=== PATIENT | male | born 1990 | race Caucasian/White ===

== ENCOUNTER 2018-07-17 16:05 | Observation (INO) | payer MEDICAID, SELFPAY ==
[2018-07-17 16:07] VITALS: BP 153/94; PULSE 90; RESP 16; TEMP 37; O2SAT 100; BMI 22.4
--- NOTE | 2018-07-17 16:27 | ED.DCSUM_ITS ---
- ER Visit Summary Date of Service: 07/17/18 Chief Complaint: Fentanyl withdrawal History of Present Illness: The patient is a 28 M who presents in [facility]. He states that his last use of fentanyl was about 15 hours ago. He states he is using about a half a gram a day. He feels restless and clammy. He has had nausea without vomiting. He has not had a bowel movement today. He has been in contact [facility] and [facility] sent him here for workup. Does have a history of hepatitis C but is not on any current treatments. Physical Examination: Vital signs reviewed. HEENT exam unremarkable. Heart is regular rate and rhythm without murmurs. Lungs are clear to auscultation. Abdomen is soft and nontender. Extremities reveal no edema. Skin exam track beck are noted on the bilateral arms. Neurologic exam normal. Test Results: Sodium 135, glucose 112. Alcohol normal. Toxicology screen reveals opiates, amphetamines, cocaine and cannabis Emergency Department Course and Treatment: The patient scored a 21 on his narcotic withdrawal assessment. This indicates moderate withdrawal. [facility] has left for the day. I did discuss with the hospitalist for admission. Treatment Plan: [] Disposition: Admit Impression: Narcotic withdrawal This note was generated with [employer] dictation software. It may contain incorrect words, spelling, and punctuation that were not noted in review of the chart prior to signing ED Disposition - Plan for ED Patient: Chief Complaint: Substance Abuse
[2018-07-17 17:04] LABS: Absolute Lymphocyte Count 1.59 X10^3/ul (0.83-4.51); Absolute Neutrophil Count 6.3 X10^3/uL (2.0-7.7); Basophil# 0.04 X10^3/uL; Basophil% 0.5 % (0-1); Eosinophil# 0.13 X10^3/uL; Eosinophils% 1.5 % (0-5); Hematocrit 40.5 % (40-54); Lymphocyte # 1.59 X10^3/ul (4.0); Lymphocyte % 18.1 % (19-41); Mean Corp Hgb Conc 34.6 g/gl (32-36); Mean Corpuscular Hgb 31.7 pg (27.0-32.0); Mean Corpuscular Volume 91.6 fL (80-94); Mean Platelet Vol. 9.6 fl (6.2-12.0); Monocyte# 0.69 X10^3/uL; Monocyte% 7.9 % (0-10); Neutrophil # 6.31 X10^3/uL (2.7-7.7); Neutrophil % 71.9 % (47-70); Platelet Count 276 K/mm3 (150-450); Red Blood Count 4.42 M/mm3 (4.6-6.2); White Blood Count 8.8 K/mm3 (4.4-11.0)
[2018-07-17 17:07] LABS: POSITIVE COUNT NO; POSITIVE DIFFERENTIAL NO; POSITIVE MORPHOLOGY NO
[2018-07-17 17:12] LABS: Alcohol, Blood (Medical)-Serum < 3.0 mg/dL
[2018-07-17 17:15] LABS: Anion Gap 7 (5-15); BUN 9 mg/dL (7-18); BUN/Creat Ratio 11.1 RATIO (10-20); Calcium,Total 9.2 mg/dL (8.5-10.1); Chloride 101 mmol/L (98-107); Creatinine, Serum 0.81 mg/dL (0.70-1.30); EST Glomerular Filtration Rate 119 mL/min (>60); Est Glom Filt Rate - Afr Amer 144 mL/min (>60); Estimated Creatinine Clearance 123.63 ml/min; Glucose 112 mg/dL (74-106); Potassium 3.5 mmol/L (3.5-5.1); Sodium Level 135 mmol/L (136-145)
[2018-07-17 17:38] LABS: Amphetamine Urine VISTA POSITIVE (<1000 ng/mL); Barbiturate Urine VISTA NEGATIVE (< 200 ng/mL); Benzodiazepine Urine VISTA NEGATIVE (< 200 ng/mL); Cocaine Urine VISTA POSITIVE (< 300 ng/mL); Ecstacy Urine VISTA NEGATIVE (< 500 ng/mL); Methadone Urine VISTA NEGATIVE (< 300 ng/mL); PCP Urine VISTA NEGATIVE (< 25 ng/mL); THC Urine VISTA POSITIVE (< 50 ng/mL); Vista UDS pH Range 7
--- NOTE | 2018-07-17 18:01 | NURSING ---
MED SURG NARCOTIC WITHDRAWAL GUSTAVO
--- NOTE | 2018-07-17 18:07 | PCM.HP.STD ---
Problem List (1) Opiate withdrawal Status: Acute History of Present Illness Date of Admission: 07/17/18 Chief Complaint: fentanyl withdrawal The patient is a 28 year old M who injects fentanyl. Last use was approximately 15 hours prior to arrival. Since then, patient has been having tremulousness, abdominal cramps, nausea and anxiety. Patient presents for [facility] but sent to the emergency room for admission. Patient had lab work in the emergency room sample for urine drug screen positive for opiates, amphetamines, cocaine and cannabinoids. Patient has quit before only to relapse in the past. Patient intends on quitting all drugs moving forward. [] Past Medical History Medical History: Medical History (Last Updated 07/17/18 @ 18:10 by Nino Cox DO) Cleft palate Q35.9 Hepatitis C B19.20 Opiate abuse, continuous F11.10 Polysubstance abuse F19.10 Allergies Penicillins Allergy (Verified 07/17/18 16:09) Hives Home Medications: Ambulatory Orders Medication Instructions Recorded NK 07/17/18 Surgical History: - - cleft palate repair Lives: Alone Smoking Status: Heavy Smoker (>10/day) Tobacco Use: Cigarettes Alcohol: None Drugs: Cocaine, Heroin, Marijuana - *Family History Maternal History Items: - - no medical problems Paternal History Items: - - no medical problems Review of Systems Constitutional: Denies: Chills, Fever, Weight Change Eyes: Reports: Blurred vision. Denies: Double vision HEENT: Reports: Sinus Congestion, - - rhinitis. Denies: Head Aches, Sinus Drainage Cardiovascular: Denies: Chest Pain, Palpitations Respiratory: Denies: Cough, Shortness of breath at rest, Sputum production Gastrointestinal: Reports: Nausea. Denies: Abdominal Pain, Vomiting Genitourinary: Denies: Dysuria Musculoskeletal: Denies: Joint Pain, Joint Tenderness Skin: Reports: - - track beck in RUE Neurological: Denies: Numbness, Tingling, Focal weakness Hematologic/ Lymphatic: Denies: Easy Bruising, Easy Bleeding, Hx of blood clot Comment: All review of systems are negative except as mentioned in the history of present illness and the other review of systems. VTE Information - Inpt Only VTE Present on Admission: No VTE Mechan Device Prophylaxis: None VTE Pharm Prophylaxis ordered?: No Reason prophylaxis not ordered:: Procedure Not Indicated Patient Problems: Active and Suspected Problems Opiate withdrawal (Acute) - Physical Exam General: Alert, No apparent distress HEENT: Atraumatic, Normocephalic, - - Cauliflower ear on the right Neck: No Nodes, Thyroid Normal Size and Texture Lungs: Clear to auscultation, Normal air movement, No rhonchi, No wheeze Cardiovascular: Regular rate, Regular Rhythm, Normal S1, Normal S2, No murmurs Abdomen: Bowel Sounds Present, Soft, Non Tender, Non-Distended, No Hepato-splenomegaly Extremities: No edema, No Calf Tenderness Skin: - - Linear track beck in the right forearm there is no evidence of any cellulitis nor erythema nor fluctuance. Psych/Mental Status: Normal Affect, Appropriate Vital Signs Temp Pulse Resp BP Pulse Ox 37.0 C 90 16 153/94 H 100 07/17/18 16:07 07/17/18 16:07 07/17/18 16:07 07/17/18 16:07 07/17/18 16:07 Oxygen Delivery Method Room Air Weight: 64.954 kg Body Mass Index (BMI) 22.4 Laboratory Tests Past 24 Hrs 07/17/18 07/17/18 07/17/18 16:37 16:37 16:37 WBC 8.8 RBC 4.42 L Hgb 14.0 Hct 40.5 MCV 91.6 MCH 31.7 MCHC 34.6 RDW 13.0 RDW Differential 43.0 Plt Count 276 MPV 9.6 Immature Gran % (Auto) 0.100 Neut % (Auto) 71.9 H Lymph % (Auto) 18.1 L [place] % (Auto) 7.9 Eos % (Auto) 1.5 Baso % (Auto) 0.5 Absolute Neuts (auto) 6.3 Absolute Lymphs (auto) 1.59 Total Counted Not Reportable Sodium 135 L Potassium 3.5 Chloride 101 Carbon Dioxide 27.0 Anion Gap 7 BUN 9 Creatinine 0.81 Estim Creat Clear Calc 123.63 Est GFR (MDRD) Af Amer 144 Est GFR (MDRD) Non-Af 119 BUN/Creatinine Ratio 11.1 Glucose 112 H Calcium 9.2 Urine Opiates Screen Urine Methadone Screen Ur Barbiturates Screen Ur Phencyclidine Scrn Ur Amphetamines Screen U Methamphetamin-MDMA U Benzodiazepines Scrn Urine Cocaine Screen U Cannabinoids Screen Ur Drug Screen Comment Ethyl Alcohol < 3.0 07/17/18 17:15 WBC RBC Hgb Hct MCV MCH MCHC RDW RDW Differential Plt Count MPV Immature Gran % (Auto) Neut % (Auto) Lymph % (Auto) [place] % (Auto) Eos % (Auto) Baso % (Auto) Absolute Neuts (auto) Absolute Lymphs (auto) Total Counted Sodium Potassium Chloride Carbon Dioxide Anion Gap BUN Creatinine Estim Creat Clear Calc Est GFR (MDRD) Af Amer Est GFR (MDRD) Non-Af BUN/Creatinine Ratio Glucose Calcium Urine Opiates Screen POSITIVE H Urine Methadone Screen NEGATIVE Ur Barbiturates Screen NEGATIVE Ur Phencyclidine Scrn NEGATIVE Ur Amphetamines Screen POSITIVE H U Methamphetamin-MDMA NEGATIVE U Benzodiazepines Scrn NEGATIVE Urine Cocaine Screen POSITIVE H U Cannabinoids Screen POSITIVE H Ur Drug Screen Comment Ethyl Alcohol Assessment/Plan All Active Problems Opiate withdrawal (Acute) 1. Acute opiate/fentanyl withdrawal Patient will be started on Subutex taper for his acute opiate withdrawal. Additionally, patient will have other medications to help out with other somatic complaints. [facility] to assist in regards to outpatient support Patient advised that if he attempts to divert medication that he will be immediately removed from this program. 2. Polysubstance abuse Patient does willingly endorse that he does use cocaine and marijuana sparingly. Has no intention on continuing using these substances. 3. Tobacco abuse: Nicotine patch Code Visit Inpatient E&M: 13092 Init Hosp L2
--- NOTE | 2018-07-17 18:11 | HP.PCM_ITS ---
Problem List (1) Opiate withdrawal Status: Acute History of Present Illness Date of Admission: 07/17/18 Chief Complaint: fentanyl withdrawal The patient is a 28 year old M who injects fentanyl. Last use was approximately 15 hours prior to arrival. Since then, patient has been having tremulousness, abdominal cramps, nausea and anxiety. Patient presents for [facility] but sent to the emergency room for admission. Patient had lab work in the emergency room sample for urine drug screen positive for opiates, amphetamines, cocaine and cannabinoids. Patient has quit before only to relapse in the past. Patient intends on quitting all drugs moving forward. [] Past Medical History Medical History: Medical History (Last Updated 07/17/18 @ 18:10 by Nino oCx DO) Cleft palate Q35.9 Hepatitis C B19.20 Opiate abuse, continuous F11.10 Polysubstance abuse F19.10 Allergies Penicillins Allergy (Verified 07/17/18 16:09) Hives Home Medications: Ambulatory Orders Medication Instructions Recorded NK 07/17/18 Surgical History: - - cleft palate repair Lives: Alone Smoking Status: Heavy Smoker (>10/day) Tobacco Use: Cigarettes Alcohol: None Drugs: Cocaine, Heroin, Marijuana - *Family History Maternal History Items: - - no medical problems Paternal History Items: - - no medical problems Review of Systems Constitutional: Denies: Chills, Fever, Weight Change Eyes: Reports: Blurred vision. Denies: Double vision HEENT: Reports: Sinus Congestion, - - rhinitis. Denies: Head Aches, Sinus Drainage Cardiovascular: Denies: Chest Pain, Palpitations Respiratory: Denies: Cough, Shortness of breath at rest, Sputum production Gastrointestinal: Reports: Nausea. Denies: Abdominal Pain, Vomiting Genitourinary: Denies: Dysuria Musculoskeletal: Denies: Joint Pain, Joint Tenderness Skin: Reports: - - track beck in RUE Neurological: Denies: Numbness, Tingling, Focal weakness Hematologic/ Lymphatic: Denies: Easy Bruising, Easy Bleeding, Hx of blood clot Comment: All review of systems are negative except as mentioned in the history of present illness and the other review of systems. VTE Information - Inpt Only VTE Present on Admission: No VTE Mechan Device Prophylaxis: None VTE Pharm Prophylaxis ordered?: No Reason prophylaxis not ordered:: Procedure Not Indicated Patient Problems: Active and Suspected Problems Opiate withdrawal (Acute) - Physical Exam General: Alert, No apparent distress HEENT: Atraumatic, Normocephalic, - - Cauliflower ear on the right Neck: No Nodes, Thyroid Normal Size and Texture Lungs: Clear to auscultation, Normal air movement, No rhonchi, No wheeze Cardiovascular: Regular rate, Regular Rhythm, Normal S1, Normal S2, No murmurs Abdomen: Bowel Sounds Present, Soft, Non Tender, Non-Distended, No Hepato- splenomegaly Extremities: No edema, No Calf Tenderness Skin: - - Linear track beck in the right forearm there is no evidence of any cellulitis nor erythema nor fluctuance. Psych/Mental Status: Normal Affect, Appropriate Vital Signs Temp Pulse Resp BP Pulse Ox 37.0 C 90 16 153/94 H 100 07/17/18 16:07 07/17/18 16:07 07/17/18 16:07 07/17/18 16:07 07/17/18 16:07 Oxygen Delivery Method Room Air Weight: 64.954 kg Body Mass Index (BMI) 22.4 Laboratory Tests Past 24 Hrs 07/17/18 07/17/18 07/17/18 16:37 16:37 16:37 WBC 8.8 RBC 4.42 L Hgb 14.0 Hct 40.5 MCV 91.6 MCH 31.7 MCHC 34.6 RDW 13.0 RDW Differential 43.0 Plt Count 276 MPV 9.6 Immature Gran % (Auto) 0.100 Neut % (Auto) 71.9 H Lymph % (Auto) 18.1 L [place] % (Auto) 7.9 Eos % (Auto) 1.5 Baso % (Auto) 0.5 Absolute Neuts (auto) 6.3 Absolute Lymphs (auto) 1.59 Total Counted Not Reportable Sodium 135 L Potassium 3.5 Chloride 101 Carbon Dioxide 27.0 Anion Gap 7 BUN 9 Creatinine 0.81 Estim Creat Clear Calc 123.63 Est GFR (MDRD) Af Amer 144 Est GFR (MDRD) Non-Af 119 BUN/Creatinine Ratio 11.1 Glucose 112 H Calcium 9.2 Urine Opiates Screen Urine Methadone Screen Ur Barbiturates Screen Ur Phencyclidine Scrn Ur Amphetamines Screen U Methamphetamin-MDMA U Benzodiazepines Scrn Urine Cocaine Screen U Cannabinoids Screen Ur Drug Screen Comment Ethyl Alcohol < 3.0 07/17/18 17:15 WBC RBC Hgb Hct MCV MCH MCHC RDW RDW Differential Plt Count MPV Immature Gran % (Auto) Neut % (Auto) Lymph % (Auto) [place] % (Auto) Eos % (Auto) Baso % (Auto) Absolute Neuts (auto) Absolute Lymphs (auto) Total Counted Sodium Potassium Chloride Carbon Dioxide Anion Gap BUN Creatinine Estim Creat Clear Calc Est GFR (MDRD) Af Amer Est GFR (MDRD) Non-Af BUN/Creatinine Ratio Glucose Calcium Urine Opiates Screen POSITIVE H Urine Methadone Screen NEGATIVE Ur Barbiturates Screen NEGATIVE Ur Phencyclidine Scrn NEGATIVE Ur Amphetamines Screen POSITIVE H U Methamphetamin-MDMA NEGATIVE U Benzodiazepines Scrn NEGATIVE Urine Cocaine Screen POSITIVE H U Cannabinoids Screen POSITIVE H Ur Drug Screen Comment Ethyl Alcohol Assessment/Plan All Active Problems Opiate withdrawal (Acute) 1. Acute opiate/fentanyl withdrawal * Patient will be started on Subutex taper for his acute opiate withdrawal. * Additionally, patient will have other medications to help out with other somatic complaints. * [facility] to assist in regards to outpatient support * Patient advised that if he attempts to divert medication that he will be immediately removed from this program. 2. Polysubstance abuse * Patient does willingly endorse that he does use cocaine and marijuana sparingly. Has no intention on continuing using these substances. 3. Tobacco abuse: Nicotine patch Code Visit Inpatient E&M: 49284 Init Hosp L2
[2018-07-17 18:30] VITALS: BMI 18.8
[2018-07-17 18:31] VITALS: BP 135/80; PULSE 80; RESP 14; O2SAT 98
[2018-07-17 18:33] VITALS: BP 108/69; PULSE 82; RESP 18; TEMP 36.9; O2SAT 100
[2018-07-17 18:34] VITALS: BMI 18.9
[2018-07-17 19:31] VITALS: BP 121/68; PULSE 88; RESP 16; TEMP 36.8
[2018-07-17] MEDS: Ibuprofen 600 MG Tablet PO (19:43)
[2018-07-17] MEDS: Methocarbamol 750 MG Tablet PO (19:43)
[2018-07-17] MEDS: cloNIDine HCl 0.1 MG Tablet PO ×2 (19:43→23:51)
[2018-07-17] MEDS: Dicyclomine 10 MG Capsule 20 MG PO (19:43)
[2018-07-17] MEDS: Buprenorphine HCl 2 MG TAB.SUBL 4 MG SL (19:43)
[2018-07-17 20:09] LABS: HIV - WCH Non-Reactive (Nonreactive)
[2018-07-17 23:47] VITALS: BP 127/99; PULSE 75; RESP 16; TEMP 36.6
[2018-07-17] MEDS: Pramipexole Di-HCl 0.25 MG Tablet PO (23:51)
[2018-07-17] MEDS: hydrOXYzine PAM 25 MG Capsule 50 MG PO (23:51)
[2018-07-17] MEDS: traZODone 50 MG Tablet PO (23:51)
[2018-07-18 04:02] VITALS: BP 88/50; PULSE 64; RESP 16; TEMP 36.6
[2018-07-18] MEDS: Buprenorphine HCl 2 MG TAB.SUBL 4 MG SL ×2 (04:06→12:02)
[2018-07-18 08:29] VITALS: BP 147/119; PULSE 70; RESP 16; TEMP 36.4; O2SAT 99
[2018-07-18] MEDS: Methocarbamol 750 MG Tablet PO (10:08)
[2018-07-18] MEDS: cloNIDine HCl 0.1 MG Tablet PO (10:08)
--- NOTE | 2018-07-18 11:45 | PCM.PN.HOSP ---
Patient Problems: Active and Suspected Problems (Last Updated 07/17/18 @ 18:10 by Nino Cox DO) Opiate withdrawal (Acute) Subjective: Patient has a track eboni of IV use. History of fentanyl contaminated with other drugs. Currently feeling hot and cold sensation, anxiety and restlessness. Vitals/I&O's: Vital Signs Temp Pulse Resp BP Pulse Ox 97.5 F L 70 16 147/119 H 99 07/18/18 08:29 07/18/18 08:29 07/18/18 08:29 07/18/18 08:29 07/18/18 08:29 Oxygen Delivery Method Room Air Weight: 120 lb 5.958 oz Body Mass Index (BMI) 18.8 General: Alert, Oriented x3, Cooperative HEENT: Atraumatic, PERRLA, EOMI, Normocephalic Neck: Supple, No JVD, Negative Carotid Bruits Lungs: Clear to auscultation, Normal air movement, No rhonchi, No wheeze Cardiovascular: Regular rate, No murmurs Abdomen: Bowel Sounds Present, Soft, Non Tender, Non-Distended Extremities: No edema, Capillary Refill Less than 3 Seconds Skin: - - Skin needle track beck over forearms. No abscess. Musculoskeletal: No Tenderness to Palpation of Joints or Extremities Neurological: Cranial nerves II-XII grossly intact Psych/Mental Status: Normal Affect, Appropriate Laboratory Results 07/17/18 16:37: WBC 8.8, RBC 4.42 L, Hgb 14.0, Hct 40.5, MCV 91.6, MCH 31.7, MCHC 34.6, RDW 13.0, RDW Differential 43.0, Plt Count 276, MPV 9.6, Immature Gran % (Auto) 0.100, Neut % (Auto) 71.9 H, Lymph % (Auto) 18.1 L, [place] % (Auto) 7.9, Eos % (Auto) 1.5, Baso % (Auto) 0.5, Absolute Neuts (auto) 6.3, Absolute Lymphs (auto) 1.59, Total Counted Not Reportable 07/17/18 16:37: Sodium 135 L, Potassium 3.5, Chloride 101, Carbon Dioxide 27.0, Anion Gap 7, BUN 9, Creatinine 0.81, Estim Creat Clear Calc 123.63, Est GFR (MDRD) Af Amer 144, Est GFR (MDRD) Non-Af 119, BUN/Creatinine Ratio 11.1, Glucose 112 H, Calcium 9.2 07/17/18 16:37: Ethyl Alcohol < 3.0 07/17/18 16:37: HIV 1&2 Antibody Non-Reactive 07/17/18 17:15: Urine Opiates Screen POSITIVE H, Urine Methadone Screen NEGATIVE, Ur Barbiturates Screen NEGATIVE, Ur Phencyclidine Scrn NEGATIVE, Ur Amphetamines Screen POSITIVE H, U Methamphetamin-MDMA NEGATIVE, U Benzodiazepines Scrn NEGATIVE, Urine Cocaine Screen POSITIVE H, U Cannabinoids Screen POSITIVE H, Ur Drug Screen Comment Current Medications Acetaminophen (Tylenol) 500 mg PO Q4H PRN PRN PRN Reason: Temp > 100.4 F Buprenorphine HCl (Buprenorphine Hcl) 4 mg SL Q8H YOMI; Taper Stop: 07/20/18 23:59 Last Admin: 07/18/18 04:06 Dose: 4 mg Clonidine (Catapres) 0.1 mg PO Q2H PRN PRN PRN Reason: Hot/Cold Sweats or Anxiety Last Admin: 07/18/18 10:08 Dose: 0.1 mg Dicyclomine HCl (Bentyl) 20 mg PO Q6H PRN PRN PRN Reason: Abdomnial Discomfort Last Admin: 07/17/18 19:43 Dose: 20 mg Hydroxyzine Pamoate (Vistaril Pamoate Capsule) 50 mg PO Q6H PRN PRN PRN Reason: Mild Anxiety Last Admin: 07/17/18 23:51 Dose: 50 mg Ibuprofen (Motrin) 600 mg PO Q8H PRN PRN PRN Reason: Mild-Moderate Pain (1-5/10) Last Admin: 07/17/18 19:43 Dose: 600 mg Loperamide HCl (Imodium) 2 - 4 mg PO UD PRN PRN Reason: LOOSE STOOLS Methocarbamol (Methocarbamol) 750 mg PO Q6H PRN PRN PRN Reason: Muscle Aches Last Admin: 07/18/18 10:08 Dose: 750 mg Nicotine (Nicoderm Cq (Pbkc)) 21 mg TRANSDERM. DAILY YOMI Last Admin: 07/18/18 10:12 Dose: Not Given Nutritional Formula (Lactose Free) (Ensure Enlive) 120 ml PO 4X/DAY YOMI Ondansetron HCl (Zofran Odt) 4 mg PO Q6H PRN PRN PRN Reason: NAUSEA Pramipexole Dihydrochloride (Mirapex) 0.25 mg PO Q12H PRN PRN PRN Reason: Restless Legs Last Admin: 07/17/18 23:51 Dose: 0.25 mg Trazodone HCl (Desyrel) 50 mg PO QHS [facility] Last Admin: 07/17/18 23:51 Dose: 50 mg Medical Necessity - Tobacco Use Smoking Status: Current some day smoker Tobacco Use: Cigarettes Assessment/Plan All Active Problems (Last Updated 07/17/18 @ 18:10 by Nino Cox DO) Opiate withdrawal (Acute) This is a 28-year-old gentleman with history of polysubstance use and relapses in the past who was admitted through [facility] program for medical stabilization of fentanyl withdrawal. Patient having withdrawal symptoms as tremors, nausea, anxiety, restlessness and abdominal cramps. He denies diarrhea. urine drug screen positive for opiates, amphetamines, cocaine and cannabinoids. 1. Acute opiate/fentanyl withdrawal started on Subutex taper for his acute opiate withdrawal. On medical stabilization program to scheduled then taper dose of medications as per [facility] protocol [facility] to assist in regards to outpatient support 2. Polysubstance abuse Patient does willingly endorse that he does use cocaine and marijuana sparingly. Has no intention on continuing using these substances. 3. Tobacco abuse: Nicotine patch DVT prophylaxis: Low risk early ambulation encouraged. Code Visit Inpatient E&M: 21173 Subs Hosp L2
--- NOTE | 2018-07-18 11:49 | PN_ITS ---
Patient Problems: Active and Suspected Problems (Last Updated 07/17/18 @ 18:10 by Nino Cox DO) Opiate withdrawal (Acute) Subjective: Patient has a track eboni of IV use. History of fentanyl contaminated with other drugs. Currently feeling hot and cold sensation, anxiety and restlessness. Vitals/I&O's: Vital Signs Temp Pulse Resp BP Pulse Ox 97.5 F L 70 16 147/119 H 99 07/18/18 08:29 07/18/18 08:29 07/18/18 08:29 07/18/18 08:29 07/18/18 08:29 Oxygen Delivery Method Room Air Weight: 120 lb 5.958 oz Body Mass Index (BMI) 18.8 General: Alert, Oriented x3, Cooperative HEENT: Atraumatic, PERRLA, EOMI, Normocephalic Neck: Supple, No JVD, Negative Carotid Bruits Lungs: Clear to auscultation, Normal air movement, No rhonchi, No wheeze Cardiovascular: Regular rate, No murmurs Abdomen: Bowel Sounds Present, Soft, Non Tender, Non-Distended Extremities: No edema, Capillary Refill Less than 3 Seconds Skin: - - Skin needle track beck over forearms. No abscess. Musculoskeletal: No Tenderness to Palpation of Joints or Extremities Neurological: Cranial nerves II-XII grossly intact Psych/Mental Status: Normal Affect, Appropriate Laboratory Results 07/17/18 16:37: WBC 8.8, RBC 4.42 L, Hgb 14.0, Hct 40.5, MCV 91.6, MCH 31.7, MCHC 34.6, RDW 13.0, RDW Differential 43.0, Plt Count 276, MPV 9.6, Immature Gran % (Auto) 0.100, Neut % (Auto) 71.9 H, Lymph % (Auto) 18.1 L, [place] % (Auto) 7.9, Eos % (Auto) 1.5, Baso % (Auto) 0.5, Absolute Neuts (auto) 6.3, Absolute Lymphs (auto) 1.59, Total Counted Not Reportable 07/17/18 16:37: Sodium 135 L, Potassium 3.5, Chloride 101, Carbon Dioxide 27.0, Anion Gap 7, BUN 9, Creatinine 0.81, Estim Creat Clear Calc 123.63, Est GFR (MDRD) Af Amer 144, Est GFR (MDRD) Non-Af 119, BUN/Creatinine Ratio 11.1, Glucose 112 H, Calcium 9.2 07/17/18 16:37: Ethyl Alcohol < 3.0 07/17/18 16:37: HIV 1&2 Antibody Non-Reactive 07/17/18 17:15: Urine Opiates Screen POSITIVE H, Urine Methadone Screen NEGATIVE, Ur Barbiturates Screen NEGATIVE, Ur Phencyclidine Scrn NEGATIVE, Ur Amphetamines Screen POSITIVE H, U Methamphetamin-MDMA NEGATIVE, U Benzodiazepines Scrn NEGATIVE, Urine Cocaine Screen POSITIVE H, U Cannabinoids Screen POSITIVE H, Ur Drug Screen Comment Current Medications Acetaminophen (Tylenol) 500 mg PO Q4H PRN PRN PRN Reason: Temp > 100.4 F Buprenorphine HCl (Buprenorphine Hcl) 4 mg SL Q8H YOMI; Taper Stop: 07/20/18 23:59 Last Admin: 07/18/18 04:06 Dose: 4 mg Clonidine (Catapres) 0.1 mg PO Q2H PRN PRN PRN Reason: Hot/Cold Sweats or Anxiety Last Admin: 07/18/18 10:08 Dose: 0.1 mg Dicyclomine HCl (Bentyl) 20 mg PO Q6H PRN PRN PRN Reason: Abdomnial Discomfort Last Admin: 07/17/18 19:43 Dose: 20 mg Hydroxyzine Pamoate (Vistaril Pamoate Capsule) 50 mg PO Q6H PRN PRN PRN Reason: Mild Anxiety Last Admin: 07/17/18 23:51 Dose: 50 mg Ibuprofen (Motrin) 600 mg PO Q8H PRN PRN PRN Reason: Mild-Moderate Pain (1-5/10) Last Admin: 07/17/18 19:43 Dose: 600 mg Loperamide HCl (Imodium) 2 - 4 mg PO UD PRN PRN Reason: LOOSE STOOLS Methocarbamol (Methocarbamol) 750 mg PO Q6H PRN PRN PRN Reason: Muscle Aches Last Admin: 07/18/18 10:08 Dose: 750 mg Nicotine (Nicoderm Cq (Pbkc)) 21 mg TRANSDERM. DAILY YOMI Last Admin: 07/18/18 10:12 Dose: Not Given Nutritional Formula (Lactose Free) (Ensure Enlive) 120 ml PO 4X/DAY YOMI Ondansetron HCl (Zofran Odt) 4 mg PO Q6H PRN PRN PRN Reason: NAUSEA Pramipexole Dihydrochloride (Mirapex) 0.25 mg PO Q12H PRN PRN PRN Reason: Restless Legs Last Admin: 07/17/18 23:51 Dose: 0.25 mg Trazodone HCl (Desyrel) 50 mg PO QHS YOMI Last Admin: 07/17/18 23:51 Dose: 50 mg Medical Necessity - Tobacco Use Smoking Status: Current some day smoker Tobacco Use: Cigarettes Assessment/Plan All Active Problems (Last Updated 07/17/18 @ 18:10 by Nino Cox DO) Opiate withdrawal (Acute) This is a 28-year-old gentleman with history of polysubstance use and relapses in the past who was admitted through [facility] program for medical stabilization of fentanyl withdrawal. Patient having withdrawal symptoms as tremors, nausea, anxiety, restlessness and abdominal cramps. He denies diarrhea. urine drug screen positive for opiates, amphetamines, cocaine and cannabinoids. 1. Acute opiate/fentanyl withdrawal * started on Subutex taper for his acute opiate withdrawal. * On medical stabilization program to scheduled then taper dose of medications as per [facility] protocol * [facility] to assist in regards to outpatient support 2. Polysubstance abuse * Patient does willingly endorse that he does use cocaine and marijuana sparingly. Has no intention on continuing using these substances. 3. Tobacco abuse: Nicotine patch DVT prophylaxis: Low risk early ambulation encouraged. Code Visit Inpatient E&M: 62284 Subs Hosp L2
[2018-07-18 13:49] VITALS: BP 99/61; PULSE 65; RESP 16; TEMP 36.5; O2SAT 99
--- NOTE | 2018-07-18 15:25 | NURSING ---
pt left ama, pt signed ama papers
--- NOTE | 2018-07-18 15:38 | DS.PCM_ITS ---
Discharge Date and Diagnosis Date of Admission: 07/17/18 Date of Discharge: 07/18/18 - Primary Discharge Diagnosis Acute fentanyl/opioid withdrawal Hospital Course and Treatment Summary of Care Provided: [] This is a 28-year-old gentleman with history of polysubstance use and relapses in the past who was admitted through [facility] program for medical stabilization of fentanyl withdrawal. Patient having withdrawal symptoms as tremors, nausea, anxiety, restlessness and abdominal cramps. He denies diarrhea. urine drug screen positive for opiates, amphetamines, cocaine and cannabinoids. 1. Acute opiate/fentanyl withdrawal * started on Subutex taper for his acute opiate withdrawal. * On medical stabilization program to scheduled then taper dose of medications as per [facility] protocol * [facility] to assist in regards to outpatient support 2. Polysubstance abuse * Patient does willingly endorse that he does use cocaine and marijuana sparingly. Has no intention on continuing using these substances. 3. Tobacco abuse: Nicotine patch The patient was seen and examined today Patient signed AMA and left hospital. Risks and complications of signing AMA V of acute opioid withdrawal explained to the patient and refused to stay. Home Medications: Medications to take at Discharge NK 07/17/18 Primary Care Physician: Care Physician,No Primary [Primary Care Provider] - Medical Necessity - Tobacco Use Smoking Status: Current some day smoker Tobacco Use: Cigarettes Meaningful Use Info Meaningful Use Diagnoses (Choose all that apply): None applicable
== END 2018-07-18 15:24 | disposition left against medical advice (07) ==
LOC: ED 16:48 → MS2 07-18 07:18
PROVIDERS: Emergency Provider Emergency Medicine; Visit Provider Internal Medicine
DX: F11.23 Opioid dependence with withdrawal (principal); F19.10 Other psychoactive substance abuse, uncomplicated; F17.210 Nicotine dependence, cigarettes, uncomplicated; Z86.19 Personal history of other infectious and parasitic diseases
CPT/HCPCS: 80048; 80307; 80320; 85025; 86703; 97802; 99218; 99281; 99406; G0378; G0480

== ENCOUNTER 2019-08-09 23:01 | Observation (INO) | payer MEDICAID, SELFPAY ==
[2019-08-09 23:02] VITALS: BP 126/76; PULSE 82; RESP 14; TEMP 37.2; O2SAT 100; BMI 21.7
--- NOTE | 2019-08-09 23:09 | ED.RN ---
PT STATES LAST USE WAS 15 HOURS AGO. WHILE IN TRIAGE PT FEEL ASLEEP WHILE SITTING IN THE CHAIR. PT STATES I JUST TIRED BRO. RN MADE AWARE. Donny JAVED RN [id number]
--- NOTE | 2019-08-09 23:19 | PCM.HP.STD ---
Problem List (1) Opiate withdrawal Status: Acute (2) Tobacco use Status: Chronic (3) Hepatitis C Status: Chronic Qualifiers: Viral hepatitis chronicity: unspecified Hepatic coma status: without hepatic coma Qualified Code(s): B19.20 - Unspecified viral hepatitis C without hepatic coma History of Present Illness Date of Admission: 08/09/19 Chief Complaint: Acute opiate withdrawal The patient is a 29 y/o M w/ PMHx: Hepatitis C, Tobacco use, Combined Fentanyl/Heroine IV usage (normally 1/2-1 gm daily) who presents to the [facility] ED on 08/10/19 w/ noted opiate withdrawal onset starting evening of day of presentation following last dose ~ 15 hours prior to presentation with abdominal pain/cramping, generalized body aches and pains, rhinorrhea, piloerection, fatigue, restless leg, sweating, yawning. Patient interested in attaining clean status. From discussion with patient he has been through the program once prior. Patient has unfortunately been living with his father who has a substance abuse issue and since then has relapsed. Patient presents with his mother and notes that he is interested attaining a clean status. Patient understands that he will need to have arrangements to live with someone aside his father as if he returns likely he will relapse immediately. Work-up in the ED included T 98.9, heart rate 82, BP 126/76, respiratory rate 14, and her percent on room air, CBC with WC 4.8, hemoglobin 11.9, platelet 225 without shift, CMP with sodium 135, potassium 5.3, BUN/creatinine 12/0.67, AST/ALT 51/32, total bilirubin 0.40, direct bilirubin less than 0.05, alcohol level less than 3, urine drug screen requested per ED physician and pending upon evaluation of patient. Past Medical History Past Medical History (Chronic Problems): Chronic Problems (Last Updated 07/17/18 @ 18:10 by Nino Cox DO) Tobacco use (Chronic) Hepatitis C (Chronic) Medical History: Medical History (Last Updated 07/17/18 @ 18:10 by Nino Cox DO) Cleft palate Q35.9 Hepatitis C B19.20 Opiate abuse, continuous F11.10 Polysubstance abuse F19.10 Allergies Penicillins Allergy (Verified 08/09/19 23:05) Hives Home Medications: Ambulatory Orders Medication Instructions Recorded Buprenorphine HCl/Naloxone HCl 1 ea SL BID 08/09/19 [Suboxone 8 mg-2 mg Sl Film] Surgical History: - - Cleft palate repair. Lives: - - Patient currently living with his father who does have a substance abuse problem as well. Patient's mother is present, she is a nurse, she has not had him live with her secondary to his usage problems and associated issues. Smoking Status: Current every day smoker - Patient currently smoking 1/2 to 1 pack/day cigarette tobacco usage. Tobacco Use: Cigarettes Alcohol: None Drugs: Heroin, - - Fentanyl. - *Family History Maternal History Items: - - Patient denies any market maternal family history including heart disease, diabetes or cancer. Paternal History Items: - - Patient notes that he has a paternal family history of substance abuse, psychiatric illness. Review of Systems Constitutional: Reports: Anorexia, Malaise, Weakness, Fatigue. Denies: Chills, Fever, Weight Change HEENT: Reports: Nasal Congestion, Sinus Congestion, Sinus Drainage. Denies: Head Aches Cardiovascular: Denies: Chest Pain, Palpitations Respiratory: Denies: Cough, Shortness of breath at rest, Sputum production Gastrointestinal: Reports: Abdominal Pain, Diarrhea, Nausea. Denies: Vomiting Genitourinary: Denies: Dysuria Musculoskeletal: Reports: Joint Pain, Muscle pain. Denies: Joint Tenderness Skin: Reports: Skin Changes. Denies: Rash, Wounds Neurological: Denies: Numbness, Tingling, Focal weakness Psychiatric: Denies: Anxiety, Depression, Homicidal Ideations, Suicidal Ideations Hematologic/ Lymphatic: Reports: Anemia. Denies: Easy Bruising, Easy Bleeding VTE Information - Inpt Only VTE Present on Admission: No VTE Mechan Device Prophylaxis: None VTE Pharm Prophylaxis ordered?: No Reason prophylaxis not ordered:: Treatment Not Indicated Patient Problems: Active and Suspected Problems (Last Updated 07/17/18 @ 18:10 by Nino Cox DO) Opiate withdrawal (Acute) Subjective: Seated upright in ED bed, yawning, fatigued although agitated, notes current abdominal pain and nausea. Objective: Physical Examination: General: awakens to stimuli, intermittently alert, oriented x 3 once more awake, remains cooperative, seated upright in the ED bed, fatigued appearance, intermittently appears agitated. Skin: normal color, turgor, no icterus, cyanosis except noted track beck, most recent usage site right upper extremity which he notes he is suspected possible break of a needle. HEENT: AT/NC, EOMI, PERRLA, dry MM, no carotid bruits or JVD noted. Lungs: CTA bilaterally, moderate effort, mild decrease BL bases, no rales, ronchi or wheezing. Heart: Regular rate and rhythm; no gallop, rub audible. Abdomen: soft, mild generalized discomfort to palpation, ND, mildly hyperactive BS, + HM. Extremities: no cyanosis, clubbing, or edema. Neurological: awakens to stimuli, intermittently alert, oriented x 3 once more awake, remains cooperative; cognitive function decreased from baseline; pupils equally reactive to light and accomodation; cranial nerves II-XII grossly normal, moving all 4 extremities, no focal deficits, strength moderately global decrease secondary to acute presentation. Psychiatric: affect appears fatigued although intimately agitated, no acute evidence of depressive or anxiety feelings. - Physical Exam Vitals/I&O's: Vital Signs Temp Pulse Resp BP Pulse Ox 98.9 F 82 14 126/76 H 100 08/09/19 23:02 08/09/19 23:02 08/09/19 23:02 08/09/19 23:02 08/09/19 23:02 Oxygen Delivery Method Room Air Weight: 135 lb Body Mass Index (BMI) 21.7 Assessment/Plan All Active Problems (Last Updated 07/17/18 @ 18:10 by Nino Cox DO) Opiate withdrawal (Acute) The patient is a 29 y/o M w/ PMHx: Hepatitis C, Tobacco use, Combined Fentanyl/Heroine IV usage who presents to the [facility] ED on 08/10/19 w/ noted opiate withdrawal onset starting evening of day of presentation following last dose ~ 15 hours prior. (1) Acute Opiate Withdrawal: Will admit to [facility], routine labs obtained as noted, pending urine for drug screen, will initiate and continue on tapering course of Subutex, as needed Seroquel, Librium, Sinemet, Catapres, Bentyl, Vistaril, IV fluids, IV antiemetics, Tylenol as needed for pain. Once patient clinically improved and completion of taper nearing will plan assistance by case management for transition to next level of rehabilitation care. Patient notes most recent usage right upper extremity with potential needle break, plain film requested and pending. (2) Polysubstance Abuse, IVDA, History of Hepatitis C, Chronic: Patient currently not candidate for hep C treatment currently as needs to be clean, sober x 6 months, documented attendance NA or AA meetings, counseling and ongoing negative drug screens. Once appropriate GI, ID to initiate. HIV, hepatitis panel to assess for co-infection pending. Encouraged PCP establishment and follow-up. (3) Tobacco Abuse: Encouraged cessation, inpatient consultation per RT, NR if desired. (4) DVT prophylaxis: Low risk, ambulation. Code Visit Inpatient E&M: 40817 Init Hosp L3
--- NOTE | 2019-08-09 23:22 | ED.DCSUM_ITS ---
History of Present Illness Chief Complaint: Substance Abuse Detail of Chief Complaint: Requesting detox from heroin and fentanyl Informant: Patient Narrative: Patient presents requesting inpatient detox from heroin and fentanyl. He states he mostly uses fentanyl and injected IV. Last use was 15 hours ago. He states he is developing muscle cramps and joint aches, nausea, and restlessness. He was treated in our [facility] approximately 1 year ago. Patient states he had a relapse because of several things ongoing in his life that he has not dealt well with. Patient does admit to smoking. He denies alcohol use to me. Past Medical History - Allergies and Home Meds Allergies/Adverse Reactions: Allergies Penicillins Allergy (Verified 08/09/19 23:05) Hives Primary Care Physician: Care Physician,No Primary [Primary Care Provider] - Prior records reviewed: Yes Past Medical History: - - Reviewed Surgical History: - - cleft palate repair Smoking Status: Current every day smoker - Family History Maternal Family History: Reports: - - no medical problems Paternal Family History: Reports: - - no medical problems Review of Systems General: Denies: Chills, Fever Eyes: Denies: Visual changes - bilaterally ENT: Denies: Bilateral ear pain Cardiovascular: Denies: Chest pain Respiratory: Denies: Dyspnea Gastrointestinal: Reports: Nausea Musculoskeletal: Reports: Myalgias, Arthralgias, Extremity Pain Skin: Denies: Rash Neurological: Denies: Headache Psych: Reports: Anxiety Physical Exam Vital Signs/Narrative: Vital Signs Temp Pulse Resp BP Pulse Ox 08/09/19 23:02 98.9 F 82 14 126/76 H 100 Inital Vital Signs reviewed: Yes General: Well nourished, Well developed Head: Normocephalic ENT: Moist mucous membranes Neck: Supple Cardiovascular: Regular rate, Regular rhythm Respiratory: No distress, CTA bilaterally Abdomen: Soft, Nontender Extremities: - - Injection beck noted to left forearm without evidence of abscess or infection. Neurological: Alert, Oriented x3, Normal Strength, Normal Sensation Psychological: - - Mildly anxious Diagnostic/Tx/Re-eval - Medical Decision Making Patient was advised when he walked in the door that we did not have the [facility] program any longer. When I saw him I explained to him that the hospitalist will often still admit for detox and we do have an addiction medicine doctor working with us. I spoke with hospitalist and she agreed to admit the patient. Basic labs will be drawn and patient be admitted to the floor. ED Disposition - Plan for ED Patient: Disposition: Acute Care Hospital [facility] Diagnosis: Opioid withdrawal Referrals: Care Physician,No Primary [Primary Care Provider] -
[2019-08-09 23:41] LABS: Absolute Lymphocyte Count 1.51 X10^3/uL (0.83-4.51); Absolute Neutrophil Count 2.8 X10^3/uL (2.0-7.7); Basophil# 0.04 X10^3/uL; Basophil% 0.8 % (0-1); Eosinophil# 0.09 X10^3/uL; Eosinophils% 1.9 % (0-5); Hematocrit 36.2 % (40-54); Hemoglobin 11.9 g/dL (13.0-16.5); Lymphocyte # 1.51 X10^3/ul (4.0); Lymphocyte % 31.3 % (19-41); Mean Corp Hgb Conc 32.9 g/dL (32-36); Mean Corpuscular Hgb 30.2 pg (27.0-32.0); Mean Corpuscular Volume 91.9 fL (80-94); Mean Platelet Vol. 9.5 fl (6.2-12.0); Monocyte# 0.41 X10^3/uL; Monocyte% 8.5 % (0-10); NRBC Flagged by Analyzer 0 % (0-5); Neutrophil # 2.76 X10^3/uL (2.7-7.7); Neutrophil % 57.1 % (47-70); Platelet Count 225 K/mm3 (150-450); RBC Distribution Width CV 12.9 % (11.6-14.6); RBC Distribution Width SD 42.8 fl (35.1-43.9); Red Blood Count 3.94 M/mm3 (4.6-6.2); White Blood Count 4.8 K/mm3 (4.4-11.0)
[2019-08-09] MEDS: LORazepam 2 MG/ML Syringe 0.5 MG IV (23:49)
[2019-08-09] MEDS: 0.9% Normal Saline 1,000 ML 150 ML IV (23:49)
[2019-08-09 23:56] LABS: AST(SGOT) 51 U/L (15-37); Alanine Aminotransfer ALT/SGPT 32 U/L (16-61); Albumin, Serum 3.5 g/dL (3.2-5.0); Alkaline Phosphatase 63 U/L (45-117); Anion Gap 3 (5-15); BUN 12 mg/dL (7-18); Bilirubin, Direct < 0.05 mg/dL (0.00-0.30); Calcium,Total 8.8 mg/dL (8.5-10.1); Chloride 103 mmol/L (98-107); Creatinine, Serum 0.67 mg/dL (0.70-1.30); EST Glomerular Filtration Rate 148 mL/min (>60); Est Glom Filt Rate - Afr Amer 180 mL/min (>60); Estimated Creatinine Clearance 139.63 ml/min; Globulin 4.1 g/dL (2.2-4.2); Glucose 94 mg/dL (74-106); Potassium 5.3 mmol/L (3.5-5.1); Protein, Total 7.6 g/dL (6.4-8.2); Sodium Level 135 mmol/L (136-145)
[2019-08-10 00:28] LABS: Alcohol, Blood (Medical)-Serum < 3.0 mg/dL
[2019-08-10 00:46] VITALS: BMI 21.1
[2019-08-10 01:00] VITALS: BP 111/72; PULSE 78; RESP 18; TEMP 36.4; O2SAT 98
[2019-08-10] MEDS: Lactated Ringers 1,000 ML 125 ML IV (01:26)
[2019-08-10] MEDS: Methocarbamol 750 MG Tablet PO ×2 (01:27→09:13)
[2019-08-10] MEDS: Dicyclomine 10 MG Capsule 20 MG PO ×2 (01:27→09:12)
[2019-08-10] MEDS: Ibuprofen 600 MG Tablet PO ×2 (01:27→09:13)
[2019-08-10] MEDS: Buprenorphine HCl 2 MG TAB.SUBL 4 MG SL ×2 (01:27→09:08)
--- NOTE | 2019-08-10 01:40 | RAD_ITS ---
STUDY: X-RAY - RIGHT ELBOW REASON FOR EXAM: Male, 29 years old. Broken needle along the anterior elbow. TECHNIQUE: 3 view(s) of the elbow. COMPARISON: None. FINDINGS: Normal visualized humerus, radius and ulna. Normal radiocapitellar and ulnotrochlear articulations. There is a subtle, there is thin, threadlike, slightly opaque linear structure within the superficial soft tissues of the anterior elbow measuring a length of 0.60 cm. Represent residual soft tissue needle. There is no demonstrated fracture. RAD/Elbow min 3 Views IMPRESSION: Small radiopaque needle like structure within the superficial soft tissues of the anterior elbow as described above. Electronically Signed: Kaleigh Dietrich MD at 2:25 EDT , Service support ,
--- NOTE | 2019-08-10 04:59 | NURSING ---
called lab to verify if they have urine sample for pt d/t it says in order it has been collected. spoke to Allegra states they dont have it. called Mary DEWITT in ED to clarify if urine was sent states pt wouldn't give them a sample. states she will send labels in ms3. will collect urine sample once available.
[2019-08-10 05:05] VITALS: BP 118/67; PULSE 80; RESP 18; TEMP 36.6; O2SAT 98
--- NOTE | 2019-08-10 07:03 | NURSING ---
0645- tried calling Dr. Nicholson for consult no answer. left a voicemail. 0703- called Dr. Nicholson again, no answer.
[2019-08-10] MEDS: Pramipexole Di-HCl 0.25 MG Tablet PO (09:12)
[2019-08-10] MEDS: chlordiazePOXIDE 25 MG Capsule PO (09:13)
[2019-08-10] MEDS: cloNIDine HCl 0.1 MG Tablet PO (09:13)
[2019-08-10] MEDS: hydrOXYzine PAM 25 MG Capsule 50 MG PO (09:13)
[2019-08-10 09:19] LABS: HIV - WCH Non-Reactive (Nonreactive)
--- NOTE | 2019-08-10 09:31 | CON.PCM_ITS ---
Reason for Consult Date of Consultation: 08/10/19 Reason for Consultation: Retained foreign body broken needle right antecubital area. REFERRING PHYSICIAN: Dr. Mack. MAIL PROCESSING CLERK: Dr. Nicholson. History of Present Illness: The patient is a 29 year old M was admitted for opiate withdrawal. He states he injects Fentanyl and Heroin. Last use was approximately 15 hours prior to arrival. Since then, patient has been having tremulousness, abdominal cramps, nausea and anxiety. His urine drug screen was positive for opiates, amphetamines, cocaine and cannabinoids. Patient has quit before only to relapse in the past. Patient intends on quitting all drugs moving forward. He states when he was trying to inject into his right antecubital area the day before admission, a portion of the needle broke off and was retained. He denies any pain. He denies any problem with range of motion of his right arm. He denies numbness. I was asked to evaluate this patient for surgical options for treatment. Past Medical History Past Medical History (Chronic Problems): Chronic Problems (Last Updated 07/17/18 @ 18:10 by Nino Cox DO) Heroin abuse (Chronic) Superficial vein thrombosis (Chronic) right antecubital vein from repeated IV heroin drug usage Tobacco use (Chronic) Hepatitis C (Chronic) Medical History: Medical History (Last Updated 07/17/18 @ 18:10 by Nino Cox DO) Cleft palate Q35.9 Hepatitis C B19.20 Opiate abuse, continuous F11.10 Polysubstance abuse F19.10 Allergies Penicillins Allergy (Verified 08/09/19 23:05) Hives Current Medications Acetaminophen (Tylenol) 500 mg PO Q4H PRN PRN PRN Reason: Temp > 100.4 F Al Hydroxide/Mg Hydroxide (Mylanta Ii) 30 ml PO Q6H PRN PRN PRN Reason: dyspesia Bisacodyl (Dulcolax) 10 mg RECTAL DAILY PRN PRN Reason: Constipation Buprenorphine HCl (Buprenorphine Hcl) 4 mg SL Q8H YOMI; Taper Stop: 08/13/19 04:59 Last Admin: 08/10/19 09:08 Dose: 4 mg Documented by: Chlordiazepoxide (Librium) 25 mg PO Q6H PRN PRN PRN Reason: Moderate-Severe Anxiety Last Admin: 08/10/19 09:13 Dose: 25 mg Documented by: Clonidine (Catapres) 0.1 mg PO Q2H PRN PRN PRN Reason: Hot/Cold Sweats or Anxiety Last Admin: 08/10/19 09:13 Dose: 0.1 mg Documented by: Dextrose (D50w Syringe) 0 gm IV X1 PRN; Protocol PRN Reason: Hypoglycemia Dicyclomine HCl (Bentyl) 20 mg PO Q6H PRN PRN PRN Reason: Abdomnial Discomfort Last Admin: 08/10/19 09:12 Dose: 20 mg Documented by: Glucagon () 1 mg IM .X1 PRN PRN Reason: Hypoglycemia Hydroxyzine HCl (Vistaril Vial) 50 mg IM Q6H PRN PRN PRN Reason: Breakthrough Anxiety Hydroxyzine Pamoate (Vistaril Pamoate Capsule) 50 mg PO Q6H PRN PRN PRN Reason: Mild Anxiety Last Admin: 08/10/19 09:13 Dose: 50 mg Documented by: Sodium Chloride () 1,000 mls @ 150 mls/hr IV .Q6H40M [facility] Last Infusion: 08/10/19 01:31 Dose: 0 mls/hr Documented by: Ibuprofen (Motrin) 600 mg PO Q8H PRN PRN PRN Reason: Pain Score 1-10/10 Last Admin: 08/10/19 09:13 Dose: 600 mg Documented by: Loperamide HCl (Imodium) 2 - 4 mg PO UD PRN PRN Reason: LOOSE STOOLS Methocarbamol (Methocarbamol) 750 mg PO Q6H PRN PRN PRN Reason: Muscle Aches Last Admin: 08/10/19 09:13 Dose: 750 mg Documented by: Nicotine (Nicoderm Cq (Pbkc)) 21 mg TRANSDERM. DAILY [facility] Last Admin: 08/10/19 09:17 Dose: Not Given Documented by: Nutritional Formula (Lactose Free) (Ensure Enlive) 120 ml PO 4X/DAY [facility] Last Admin: 08/10/19 09:13 Dose: Not Given Documented by: Ondansetron HCl (Zofran Odt) 4 mg PO Q6H PRN PRN PRN Reason: NAUSEA Pramipexole Dihydrochloride (Mirapex) 0.25 mg PO Q12H PRN PRN PRN Reason: Restless Legs Last Admin: 08/10/19 09:12 Dose: 0.25 mg Documented by: Malena (Senokot) 1 tablet PO QHS PRN PRN PRN Reason: Constipation Trazodone HCl (Desyrel) 50 mg PO QHS [facility] Home Medications: Ambulatory Orders Medication Instructions Recorded Buprenorphine HCl/Naloxone HCl 1 ea SL BID 08/09/19 [Suboxone 8 mg-2 mg Sl Film] Surgical History: - - Cleft palate repair. Lives: - - Patient currently living with his father who does have a substance abuse problem as well. Patient's mother is present, she is a nurse, she has not had him live with her secondary to his usage problems and associated issues. Smoking Status: Current every day smoker Tobacco Use: Cigarettes Alcohol: None Drugs: Heroin, - - Fentanyl. - *Family History Maternal History Items: - - Patient denies any market maternal family history including heart disease, diabetes or cancer. Paternal History Items: - - Patient notes that he has a paternal family history of substance abuse, psychiatric illness. Review of Systems Comment: Constitutional: Reports: Anorexia, Malaise, Weakness, Fatigue. Denies: Chills, Fever, Weight Change. HEENT: Reports: Nasal Congestion, Sinus Congestion, Sinus Drainage. Denies: Head Aches. Cardiovascular: Denies: Chest Pain, Palpitations. Respiratory: Denies: Cough, Shortness of breath at rest, Sputum production. Gastrointestinal: Reports: Abdominal Pain, Diarrhea, Nausea. Denies: Vomiting. Genitourinary: Denies: Dysuria. Musculoskeletal: Reports: Joint Pain, Muscle pain. Denies: Joint Tenderness. Skin: Reports: Skin Changes. Denies: Rash, Wounds. Neurological: Denies: Numbness, Tingling, Focal weakness. Psychiatric: Denies: Anxiety, Depression, Homicidal Ideations, Suicidal Ideations. Hematologic/ Lymphatic: Reports: Anemia. Denies: Easy Bruising, Easy Bleeding - Physical Exam Vitals/I&O's: General: alert, oriented x 3 once more awake, remains cooperative, fatigued appearance, intermittently appears agitated. Intermittently shaking. HEENT: EOMI, PERRLA. Lungs: Clear to auscultation. Heart: Regular rate and rhythm. Abdomen: soft, nondistended. Extremities: no cyanosis, clubbing, or edema. On the right antecubital area is a firm rope like palpation corresponding to the chronic superficial vein thrombosis. Overlying skin shows some mild redness that he states is chronic and was there before the needle broke off. The area is nontender. He pointed to the distal part of the firm rope area which is where he injected and where the needle would be located. He has full range of motion. No sensory deficits. Neurological: cranial nerves II-XII grossly normal. Psychiatric: affect appears fatigued although intimately agitated, no acute evidence of depressive or anxiety feelings. Vital Signs Temp Pulse Resp BP Pulse Ox 98 F 80 18 118/67 98 08/10/19 05:05 08/10/19 05:05 08/10/19 05:05 08/10/19 05:05 08/10/19 05:05 Oxygen Delivery Method Room Air Weight: 135 lb Body Mass Index (BMI) 21.1 Intake and Output for Last 24 Hours 08/08/19 08/09/19 08/10/19 23:59 23:59 23:59 Intake Total 255 / 255 Output Total 825 / 825 Balance -570 / -570 Laboratory Results 08/09/19 23:30: WBC 4.8, RBC 3.94 L, Hgb 11.9 L, Hct 36.2 L, MCV 91.9, MCH 30.2, MCHC 32.9, RDW Std Deviation 42.8, RDW Coeff of Evelyn 12.9, Plt Count 225, MPV 9.5, Immature Gran % (Auto) 0.400, Neut % (Auto) 57.1, Lymph % (Auto) 31.3, [place] % (Auto) 8.5, Eos % (Auto) 1.9, Baso % (Auto) 0.8, Absolute Neuts (auto) 2.8, Absolute Lymphs (auto) 1.51, Nucleated RBC % 0 08/09/19 23:30: Sodium 135 L, Potassium 5.3 H, Chloride 103, Carbon Dioxide 29.0, Anion Gap 3 L, BUN 12, Creatinine 0.67 L, Estim Creat Clear Calc 139.63, Est GFR (MDRD) Af Amer 180, Est GFR (MDRD) Non-Af 148, BUN/Creatinine Ratio 18.0, Glucose 94, Calcium 8.8, Total Bilirubin 0.40, Direct Bilirubin < 0.05, AST 51 H, ALT 32, Alkaline Phosphatase 63, Total Protein 7.6, Albumin 3.5, Globulin 4.1 08/09/19 23:30: Ethyl Alcohol < 3.0 08/10/19 05:20: Hepatitis A IgM Ab Pending, Hepatitis A Ab Total Pending, Hep Bs Antigen Pending, Hep B Core Total Ab Pending, Hep B Core IgM Ab Pending 08/10/19 05:20: HIV 1&2 Antibody Non-Reactive Current Medications Acetaminophen (Tylenol) 500 mg PO Q4H PRN PRN PRN Reason: Temp > 100.4 F Al Hydroxide/Mg Hydroxide (Mylanta Ii) 30 ml PO Q6H PRN PRN PRN Reason: dyspesia Bisacodyl (Dulcolax) 10 mg RECTAL DAILY PRN PRN Reason: Constipation Buprenorphine HCl (Buprenorphine Hcl) 4 mg SL Q8H YOMI; Taper Stop: 08/13/19 04:59 Last Admin: 08/10/19 09:08 Dose: 4 mg Documented by: Chlordiazepoxide (Librium) 25 mg PO Q6H PRN PRN PRN Reason: Moderate-Severe Anxiety Last Admin: 08/10/19 09:13 Dose: 25 mg Documented by: Clonidine (Catapres) 0.1 mg PO Q2H PRN PRN PRN Reason: Hot/Cold Sweats or Anxiety Last Admin: 08/10/19 09:13 Dose: 0.1 mg Documented by: Dextrose (D50w Syringe) 0 gm IV X1 PRN; Protocol PRN Reason: Hypoglycemia Dicyclomine HCl (Bentyl) 20 mg PO Q6H PRN PRN PRN Reason: Abdomnial Discomfort Last Admin: 08/10/19 09:12 Dose: 20 mg Documented by: Glucagon () 1 mg IM .X1 PRN PRN Reason: Hypoglycemia Hydroxyzine HCl (Vistaril Vial) 50 mg IM Q6H PRN PRN PRN Reason: Breakthrough Anxiety Hydroxyzine Pamoate (Vistaril Pamoate Capsule) 50 mg PO Q6H PRN PRN PRN Reason: Mild Anxiety Last Admin: 08/10/19 09:13 Dose: 50 mg Documented by: Sodium Chloride () 1,000 mls @ 150 mls/hr IV .Q6H40M YOMI Last Infusion: 08/10/19 01:31 Dose: 0 mls/hr Documented by: Ibuprofen (Motrin) 600 mg PO Q8H PRN PRN PRN Reason: Pain Score 1-10/10 Last Admin: 08/10/19 09:13 Dose: 600 mg Documented by: Loperamide HCl (Imodium) 2 - 4 mg PO UD PRN PRN Reason: LOOSE STOOLS Methocarbamol (Methocarbamol) 750 mg PO Q6H PRN PRN PRN Reason: Muscle Aches Last Admin: 08/10/19 09:13 Dose: 750 mg Documented by: Nicotine (Nicoderm Cq (Pbkc)) 21 mg TRANSDERM. DAILY [facility] Last Admin: 08/10/19 09:17 Dose: Not Given Documented by: Nutritional Formula (Lactose Free) (Ensure Enlive) 120 ml PO 4X/DAY [facility] Last Admin: 08/10/19 09:13 Dose: Not Given Documented by: Ondansetron HCl (Zofran Odt) 4 mg PO Q6H PRN PRN PRN Reason: NAUSEA Pramipexole Dihydrochloride (Mirapex) 0.25 mg PO Q12H PRN PRN PRN Reason: Restless Legs Last Admin: 08/10/19 09:12 Dose: 0.25 mg Documented by: Senna (Senokot) 1 tablet PO QHS PRN PRN PRN Reason: Constipation Trazodone HCl (Desyrel) 50 mg PO QHS [facility] Diagnostic Data Elbow X-Ray 08/10/19 01:40 IMPRESSION: Small radiopaque needle like structure within the superficial soft tissues of the anterior elbow as described above. Electronically Signed: Kaleigh Dietrich MD at 2:25 EDT , Service support , Assessment/Plan All Active Problems (Last Updated 07/17/18 @ 18:10 by Nino oCx DO) Foreign body of elbow, right, superficial (Acute) Opiate withdrawal (Acute) 1. Retained foreign body broken needle from heroin usage right elbow in antecubital area 2. 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 3. Opiate withdrawal. 4. Heroin IV drug use. 5. Smoker. X-ray reviewed. It showed small radiopaque needle like structure within the superficial soft tissues of the anterior elbow. It measures 0.6 cm. Patient is being treated for his opiate withdrawal at this time. There is no evidence of acute infection in his right antecubital area. There is some redness over the hard thrombosed vein from repeated IV drug use. He states the redness has been there for a while and hasn't worsened since the needle broke off. Will obtain a CT scan to look for a deeper abscess from repeated IV drug use. Recommend operative intervention and removal of the retained foreign body needle. The thrombosed superficial antecubital vein will be excised as well since it is a focus of infection in the future. Even though the needle is asymptomatic at this time, there is a risk of infection in the future if it is left in especially since the needle is more likely not a sterile one. Patient stated it was sterile and not used before. Because of the risk of infection, will start him on po Cleocin at this time. If there is evidence of chronic infection or fat necrosis at the time of surgery, further debridement may be necessary and the wound left open and wound care started with a VAC or with daily Silver dressing changes. After discharge can followup at the [facility]. If there is a delay in the healing process, can proceed with delayed closure with skin grafting. Will schedule the surgery in the next couple of days while he is still admitted. At the time of surgery, tissue will be sent to Pathology for analysis to rule out carcinoma and to Microbiology for culture. A positive culture will n ecessitate antibiotic therapy. Patient was informed of the risks and complications of the procedure including alternatives to surgery. These were discussed with the patient personally. Patient voices understanding and wishes to proceed. He understands that there is a small chance that the wound may be left open initially. Encouraged patient to stop smoking as it may have deleterious effects on wound healing. Code Visit Inpatient E&M: 46515 Init Hosp L2 - ICD-10 - S50.351A, I82.890, F11.23, F11.10, F17.200
--- NOTE | 2019-08-10 09:36 | CT_ITS ---
STUDY: CT RIGHT ELBOW WITHOUT CONTRAST REASON FOR EXAM: Male, 29 years old. Foreign body. Broken needle. Abnormal x-ray. RADIATION DOSAGE (If Supplied By Facility): CTDIvol = ( 24.58 ) mGy, DLP = ( 652.80 ) mGycm TECHNIQUE: Transaxial CT imaging of the elbow was performed. Sagittal and coronal images were reconstructed. There is motion artifact. Individualized dose optimization techniques were used for this CT. COMPARISON: X-ray. FINDINGS: Normal visualized humerus, radius and ulna. Normal radiocapitellar and ulnotrochlear articulations. There is linear metallic foreign body in the skin and subcutaneous tissues at the antecubital region adjacent to the vascular structures, series 3 image 41/98. There is adjacent soft tissue swelling. There is no fluid collection. CT/Extremity Upper without Contra IMPRESSION: Metallic foreign body consistent with a broken needle in the soft tissues. Electronically Signed: Joseph Jones MD at 17:11 EDT , Service support ,
[2019-08-10 09:56] VITALS: BP 98/67; PULSE 68; RESP 18; TEMP 37.1; O2SAT 100
--- NOTE | 2019-08-10 10:42 | CASEMGMT ---
Social Work Note Pt is at [facility] for Opiate withdrawal. SW met with pt and introduced self and role at [facility]. Pt is alert and orientated x3. Pt states that he will be going to [facility] in [place], [place] at discharge. Pt states that he will need to make an appointment. SW offered to make pt appointment but pt denied stating he will get their number and call himself. Pt denied additional needs or concerns at this time. Mary Otero STEEL WELDER, IMPROVEMENT AUDITOR
--- NOTE | 2019-08-10 14:35 | NURSING ---
1400 This RN went to pt room. Pt missing from room and floor. LIVING SPECIALIST spotted pt smoking outside. This RN and charger went outside to meet pt in parking lot. Educated pt that he cannot leave floor as a pt and pt then stated then he is leaving. Asked pt to come back to floor to sign AMA paperwork, which pt refused to do. Dr. Kamara and Dr. Nicholson notified. Pt's Senior [employer] and cigarettes locked in med room.
--- NOTE | 2019-08-10 17:53 | DS.PCM_ITS ---
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 Patient was admitted to [place] [address], he was placed on medication for narcotic detox, he was seen in consultation by plastic surgery due to a retained needle in the subcutaneous tissue of his right elbow. On 08/10/2019, patient was seen and examined: On examination he appeared older than his stated age. Vital signs as documented. Skin warm and dry and without overt rashes. Neck without JVD. Lungs clear. Heart exam notable for regular rhythm, normal sounds and absence of murmurs, rubs or gallops. Abdomen unremarkable and without evidence of organomegaly, masses, or abdominal aortic enlargement. Extremities nonedematous. Neuro: Cranial nerves II through XII are grossly intact, no focal motor deficits were noted, sensation to light touch and pinprick intact. Psych: Patient is alert, he appears somnolent Later on the afternoon of 08/10/2019, patient eloped from the hospital and did not return. - Physical Exam Vitals/I&O's: Vital Signs Temp Pulse Resp BP Pulse Ox 98.8 F 68 18 98/67 100 08/10/19 09:56 08/10/19 09:56 08/10/19 09:56 08/10/19 09:56 08/10/19 09:56 Oxygen Delivery Method Room Air Weight: 61.23 kg Body Mass Index (BMI) 21.1 Intake and Output for Last 24 Hours 08/08/19 08/09/19 08/10/19 23:59 23:59 23:59 Intake Total 1495 / 1495 Output Total 825 / 825 Balance 670 / 670 Laboratory Results 08/09/19 23:30: WBC 4.8, RBC 3.94 L, Hgb 11.9 L, Hct 36.2 L, MCV 91.9, MCH 30.2, MCHC 32.9, RDW Std Deviation 42.8, RDW Coeff of Evelyn 12.9, Plt Count 225, MPV 9.5, Immature Gran % (Auto) 0.400, Neut % (Auto) 57.1, Lymph % (Auto) 31.3, [place] % (Auto) 8.5, Eos % (Auto) 1.9, Baso % (Auto) 0.8, Absolute Neuts (auto) 2.8, Absolute Lymphs (auto) 1.51, Nucleated RBC % 0 08/09/19 23:30: Sodium 135 L, Potassium 5.3 H, Chloride 103, Carbon Dioxide 29.0, Anion Gap 3 L, BUN 12, Creatinine 0.67 L, Estim Creat Clear Calc 139.63, Est GFR (MDRD) Af Amer 180, Est GFR (MDRD) Non-Af 148, BUN/Creatinine Ratio 18.0, Glucose 94, Calcium 8.8, Total Bilirubin 0.40, Direct Bilirubin < 0.05, AST 51 H, ALT 32, Alkaline Phosphatase 63, Total Protein 7.6, Albumin 3.5, Globulin 4.1 08/09/19 23:30: Ethyl Alcohol < 3.0 08/10/19 05:20: Hepatitis A IgM Ab Pending, Hepatitis A Ab Total Pending, Hep Bs Antigen Pending, Hep B Core Total Ab Pending, Hep B Core IgM Ab Pending 08/10/19 05:20: HIV 1&2 Antibody Non-Reactive Home Medications: Medications to take at Discharge Buprenorphine HCl/Naloxone HCl [Suboxone 8 mg-2 mg Sl Film] 1 ea SL BID 08/09/19 Primary Care Physician: Care Physician,No Primary [Primary Care Provider] - Disposition: Against Medical Advice Minutes spent on discharge:: 31 Patient Condition:: Stable Medical Necessity - Tobacco Use Smoking Status: Current every day smoker Tobacco Use: Cigarettes Meaningful Use Info Meaningful Use Diagnoses (Choose all that apply): None applicable Code Visit Inpatient E&M: 13527 Disch Hosp
[2019-08-11 05:06] LABS: HEPATITIS B SURFACE AG Negative (Negative); Hepatitis A AB, Total Positive (Negative); Hepatitis B Core AB IgM Negative (Negative); Hepatitis B Core Ab Total Negative (Negative); Hepatitis C Ab >11.0 s/co ratio (0.0-0.9)
[2019-08-11 12:23] LABS: Hep B Surface Antibodies Reactive (.)
[2019-08-11 12:55] LABS: Hepatitis A IgM Antibody Negative (Negative)
== END 2019-08-10 14:20 | disposition left against medical advice (07) ==
LOC: ED 23:33 → MS3 08-10 06:45
PROVIDERS: Admitting Provider Family Medicine; Emergency Provider Emergency Medicine; Referring Provider Family Medicine; Visit Provider Internal Medicine
DX: F11.23 Opioid dependence with withdrawal (principal); B18.2 Chronic viral hepatitis C; F17.210 Nicotine dependence, cigarettes, uncomplicated; I82.711 Chronic embolism and thrombosis of superficial veins of right upper extremity; S50.351A Superficial foreign body of right elbow, initial encounter; W45.8XXA Other foreign body or object entering through skin, initial encounter; W22.8XXA Striking against or struck by other objects, initial encounter; Y92.9 Unspecified place or not applicable; Z91.14 Patient's other noncompliance with medication regimen
CPT/HCPCS: 36415; 73080; 73200; 80048; 80076; 80320; 85025; 86703; 86704; 86705; 86706; 86708; 86709; 86803; 87340; 96361; 96374; 97802; 99218; 99284; 99406; J7030; J7120; A4216; G0378; G0480